=== PATIENT | female | born 1940 | race Caucasian/White ===

== ENCOUNTER → 2020-08-16 | Day surgery (SDC) | payer MEDICARE, OTHER ==
[~2020-08-16] MED LIST: Lidocaine 1% 30 ML SDV ONE
== END ==
LOC: CC.SDS 09:47
PROVIDERS: ATTEND Family Medicine
DX: I83.811 Varicose veins of right lower extremity with pain (principal); I87.2 Venous insufficiency (chronic) (peripheral); I11.0 Hypertensive heart disease with heart failure; F17.200 Nicotine dependence, unspecified, uncomplicated; I50.9 Heart failure, unspecified; Z88.8 Allergy status to other drugs, medicaments and biological substances; Z79.899 Other long term (current) drug therapy; Z98.890 Other specified postprocedural states
CPT/HCPCS: 36475; A4216